=== PATIENT | female | born 1955 | race Two or more races ===

== ENCOUNTER 2016-10-21 11:26 | Emergency (ER) | payer BC ==
--- NOTE | ~2016-10-21 | ER ---
PATIENT'S NAME: ARTHUR OVIEDO [facility] AGE: 60 Y [address] ROOM: [place] [address] LOCATION: [facility] ADMIT DATE: 10/21/2016 ER/Outpatient Report DISCHARGE DATE: 10/21/2016 FAMILY PHYSICIAN: Nazanin Monique ATTENDING PHYSICIAN: Anel Garcia Time of Arrival: 1126 hours. Time of Evaluation: 1150 hours. CHIEF COMPLAINT: Left-sided abdominal pain. HISTORY OF PRESENT ILLNESS: This is a 60-year-old female, who presents to ER with her grandchildren, who interprets for her. They state that she has had left-sided abdominal pain on and off for the past 2 years. She states that she has never been evaluated for her abdominal pain because it always goes away. She states this current episode started a couple days ago. She states that she does have chronic constipation, her last bowel movement was yesterday and was normal for her. She has had a little pain with urination. No urinary frequency. No fever or chills. No nausea or vomiting. She states she ate something last evening. The patient states she has not taken anything ltek-lcw-inddaer for her pain. She does not associate her pain at all with food. She states her pain does radiate around into the left side of her back. She denies any other problems at this time. ALLERGIES: NO KNOWN ALLERGIES. MEDICATIONS: Please see medication list nurse's notes. PAST MEDICAL HISTORY: 1. Constipation. 2. Yia-pegcxwc-gozqyjtwy diabetes. 3. Hypertension. 4. Angina. PAST SURGERIES: Tubal ligation. She is post menopausal. SOCIAL HISTORY: She drinks alcohol occasionally. Denies any smoking use. REVIEW OF SYSTEMS: [facility] 60 Y [address] ROOM: [place] [address] LOCATION: [facility] ADMIT DATE: 10/21/2016 ER/Outpatient Report DISCHARGE DATE: 10/21/2016 FAMILY PHYSICIAN: Nazanin Monique ATTENDING PHYSICIAN: Anel Garcia A 10-point review of systems was completed and was negative with the exception of those discussed in the HPI. PHYSICAL EXAMINATION: VITAL SIGNS: Weight 48 kg taken, blood pressure is 175/79, pulse 67, respirations 16, temperature 97.8 degrees tympanically, and saturations 97% on room air. Terrence Coma score is 15. GENERAL: Alert, calm, well-developed female, in no acute distress. HEENT: Head: Normocephalic. Eyes: Pupils are equal and reactive to light. She does display moist mucous membranes. LUNGS: Clear to auscultation bilaterally. No wheezes or crackles. Normal respiratory effort. HEART: Regular rate and rhythm. No lifts, thrills, or murmurs. ABDOMEN: She does have some left-sided abdominal tenderness. She does not guard. She has no rebound tenderness. She has good bowel sounds throughout. No masses were palpated. EXTREMITIES: No clubbing, cyanosis, or edema. Full range of motion of all limbs. SKIN: Warm, dry, and intact. LABORATORY DATA: CBC: White count is 10.6, hemoglobin 16.6, and platelets 179. CMS: Potassium 3.6 and glucose 338, otherwise unremarkable. Amylase 70 and lipase 175. CRP is less than 0.29. TSH is 1.590. Urinalysis was negative for any infection. She does have 1000 glucose and [address] scan was done and was unremarkable except for fatty liver. IMPRESSION: Left-sided abdominal pain of unknown etiology. ASSESSMENT AND PLAN: The patient did rest comfortably here the entire stay. Her abdomen remained nonsurgical. We did start an IV. We did give her some IV fluids along with 4 mg of Zofran and 2 mg of morphine. We will dismiss her to home. She needs to continue to monitor her symptoms. I would like her to follow up with her primary care physician tomorrow. I would like her to continue to push fluids. Tylenol as needed. The patient and the patient's family understand and agree with care. SALLY ALLEN PA-C FOR ANEL GARCIA MD PATIENT'S NAME: [facility] AGE: 60 Y [address] ROOM: [place] [address] LOCATION: [facility] ADMIT DATE: 10/21/2016 ER/Outpatient Report DISCHARGE DATE: 10/21/2016 FAMILY PHYSICIAN: Nazanin Monique ATTENDING PHYSICIAN: Anel Garcia/janiyal /[id number] d: t: 10/26/16 1334, OUTPATIENT REPORT
[2016-10-21 12:41] LABS: BASOPHIL # 0.1 K/uL (0.0-0.2); BASOPHIL % 0.6 %; EOSINOPHIL # 0.3 K/uL (0.0-0.5); EOSINOPHIL % 2.4 %; HEMATOCRIT 47.6 % (33.0-46.0); HEMOGLOBIN 16.6 g/dL (10.0-15.0); IMMATURE GRANULOCYTE % 0.4 %; LYMPHOCYTE # 3.4 K/uL (0.8-4.0); LYMPHOCYTE % 32.2 %; MCH 29.1 pg (27.0-34.0); MCHC 34.9 gm/dL (32.0-36.5); MCV 83.5 fl (83.0-98.0); MONOCYTE # 0.5 K/uL (0.0-1.0); MONOCYTE % 4.7 %; MPV 12.4 fl (9.4-12.4); NEUTROPHIL # (ANC) 6.3 K/uL (1.8-7.8); NEUTROPHIL % 59.7 %; NRBC % 0 /100WBC (0-0.00); PLATELET COUNT 179 K/uL (150-450); RDW-CV 12.2 % (11.9-14.6); WBC 10.6 K/uL (4.0-11.0)
[2016-10-21 12:42] LABS: BILIRUBIN URINE NEGATIVE (NEGATIVE); BLOOD URINE NEGATIVE /UL (NEGATIVE); COLOR URINE STRAW (YELLOW); GLUCOSE URINE 1000 mg/dL (NEGATIVE); KETONE URINE 15 mg/dL (NEGATIVE); LEUKOCYTES URINE NEGATIVE /UL (NEGATIVE); NITRITE URINE NEGATIVE (NEGATIVE); PROTEIN URINE NEGATIVE (NEGATIVE); TURBIDITY URINE CLEAR (CLEAR); UROBILINOGEN URINE NORMAL (NORMAL)
[2016-10-21 13:01] LABS: ALBUMIN 3.9 gm/dL (3.5-5.0); ALK PHOS 136 IU/L (33-138); ALT 17 IU/L (12-78); ANION GAP 12.6 (10.0-19.0); AST 11 IU/L (10-40); BLOOD UREA NITROGEN 14 mg/dL (6-24); CHLORIDE 101 mMol/L (96-110); CO2 29 mMol/L (22-32); CREATININE 0.6 mg/dL (0.5-1.1); ESTIMATED GFR (MDRD EQUATION) > 60; POTASSIUM 3.6 mMol/L (3.7-5.1); SODIUM 139 mMol/L (135-145); TOTAL BILIRUBIN 0.4 mg/dL (0.0-1.5); TOTAL PROTEIN 8.3 g/dL (6.0-8.4)
== END 2016-10-21 14:00 | disposition disaster alternative care site (69) ==
LOC: GACC 11:26
PROVIDERS: Family Medicine
DX: R10.9 Unspecified abdominal pain (principal); E11.9 Type 2 diabetes mellitus without complications; I10 Essential (primary) hypertension; Z98.51 Tubal ligation status
CPT/HCPCS: J2270; J2405; J7030; Q9967